=== PATIENT | female | born 1975 | race Caucasian/White ===

== ENCOUNTER 2016-06-10 20:29 | Outpatient (CLI) | payer MEDICAID ==
[~2016-06-10] VITALS: Ht 170.2 cm; Wt 84.8 kg
[2016-06-10] MEDS ORDERED: PRENAT PO (22:10)
[2016-06-10 22:12] VITALS: Ht 170.2 cm; Wt 84.8 kg
[2016-06-10 22:13] VITALS: BP 112/71; PULSE 80; RESP 18
--- NOTE | 2016-06-10 22:57 | RADRPT ---
PROCEDURE: US OB biophysical profile. CLINICAL INDICATION: decreased movements, contractions TECHNIQUE: Multiple sonographic images of the pelvis were obtained. The images were reviewed on a PACS workstation. COMPARISON: No prior studies are available for comparison. FINDINGS: There is a single viable intrauterine gestation. Cardiac activity is present with 140 beats per min [place]. There is a vertex presentation. The placenta is posterior fundal. There is no evidence of placental abruption. There is a normal amount of amniotic fluid with an ADONAY = 13,4 cm. Biophysical profile: movement 2/2 tone 2/2. breathing 2/2 ADONAY 2/2 Total 11/05 RPTAT: AA . IMPRESSION: Normal biophysical profile. . .Andrea Earl MD, Date Time Electronically viewed and signed by .Andrea Earl MD, MD on 06/10/2016 22:57 .S/
--- NOTE | 2016-06-10 23:00 | RADRPT ---
PROCEDURE: US OB CLINICAL INDICATION: contractions TECHNIQUE: Multiple sonographic images of the pelvis were obtained. The images were reviewed on a PACS workstation. COMPARISON: No prior studies are available for comparison. FINDINGS: There is a single viable intrauterine gestation. Cardiac activity is present with 154 beats per min [place]. There is a vertex presentation. The placenta is posterior fundal. There is no evidence of placental abruption. There is a normal amount of amniotic fluid with an ADONAY = 13.4 cm. Measurements were made in order to determine age. The results are as follows: BPD =9.4 cm HC =33.6 cm AC =35.3 cm FL =7.6 cm Estimated gestational age of approximately 38 weeks and 5 days based on ultrasound measurements. Clinical age: 38 weeks and 1 days. The estimated date of delivery is 06/19/16, based on ultrasound measurements. The EFW = 3647 g, 82%, based on LMP age. RPTAT: AA IMPRESSION: Single viable intrauterine gestation of approximately 38 weeks and 5 days based on ultrasound measu rements. .Andrea Earl MD, MD Date Time Electronically viewed and signed by .Andrea Earl MD, on 06/10/2016 23:00 .S/
--- NOTE | 2016-06-11 03:18 | TRIAGE ---
OB Triage Datetime Report Generated by CPN: 06/11/2016 03:18 Datetime: 06/11/2016 00:09 Vaginal Exam Dilatation (cms): 3.0 Effacement (%): 70 Station: -3 Exam By: M. Tungate RN Membrane Status: Intact Cervix, Consistency: Soft Cervix, Position: Posterior Datetime: 06/10/2016 23:26 EGA: 38.1 Datetime: 06/10/2016 23:10 Pain Assessment Pain Scale: 0 Pain Presence: None/Denies Pain Type: N/A Datetime: 06/10/2016 21:35 Vaginal Exam Dilatation (cms): 3.0 Effacement (%): 70 Station: -3 Exam By: Bert Allen RN Membrane Status: Intact Vaginal Bleeding: None Cervix, Consistency: Soft Cervix, Position: Posterior Datetime: 06/10/2016 21:32 Stage of : OB Triage Assessment Type: Triage Maternal Assessment Level of Consciousness: Fully Conscious DTR's/Clonus: DTRs 2+; No Clonus Headache: Denies Blurred Vision: No Respiratory Effort: Unlabored; Regular Rhythm; Equal Expansion Breath Sounds, Left: Clear and Equal Breath Sounds, Right: Clear and Equal Nausea/Vomiting: Denies RUQ Epigastric Pain: Denies Lower Extremities Edema: None Degree: None Upper Extremities Edema: None Degree: None Facial Edema: None Temperature Route: Oral Fall Risk Assessment History of Falling: (0) No Secondary Diagnosis: (0) No Ambulatory Aid: (0) Bedrest/Nurse Assist IV Therapy: (0) No Gait: (0) Normal/Bedrest/Immobile Mental Status: (0) Oriented to Own Ability Fall Score: 0 Fall Risk Score Definition: No Risk: No action required Pain Assessment Pain Scale: 0 Pain Presence: None/Denies Pain Type: N/A Datetime: 06/10/2016 21:30 Time of Arrival: 06/10/2016 20:25 Arrived By: Wheelchair Arrived From: Home Chief Complaint: Sent from office 3cm for NST/BPP/EFW Movement: Present Contractions: Denies/Absent Rupture of Membranes: Denies Vaginal Bleeding: None Vaginal Discharge: Denies Recent Sexual Intercouse: Denies Abdominal Trauma: Not Applicable Patient Complaints: None Time Provider Notified: 06/11/2016 00:15 Provider Notified: Dr. Rick Initial Plan: CEFM, U/S
--- NOTE | 2016-06-11 07:45 | PN ---
Date/Time of Note Date/Time of Note DATE: 06/11/16 TIME: 07:42 OB Subjective Subjective Subjective 40 Year-old with SIUP at 38 1/7 weeks presents For NST and BPP. She has been receiving her care with Dr. Rick. She states good movement. She denies nausea, vomiting, shortness of breath, chest pain, headache, visual changes, vaginal bleeding or LOF. OB Objective Objective Objective General: Patient appears well, alert and oriented, NAD, appropriate mood and affect ABD: gravid, soft, non-tender. Back: No CVA tenderness (B/L) LE: No clubbing, cyanosis, edema, thigh or calf tenderness bilaterally FHT: 140 bpm , moderate variability with acceleration, no deceleration-category I Contractions: Occasional SVE: 3/70/-3/ceph/intact membrane OB Assessment/Plan Other plan: 40 Year-old with SIUP at 38 1/7 weeks presents for NST and BPP - FHR: No sign of metabolic acidosis- Category I - Continuous EFM, toco - Contractions: Occasional - Reactive NST. - BPP: 10/10, ADONAY: 13.7 - Symptoms and sign of labor, preeclampsia, kick count discussed with patient, she voiced understanding. All of her questions answered. - Patient was discharged home in stable condition with the appropriate discharge instructions provided. I would like patient to have close follow-up with her primaryphysician or outpatient clinic in 1-2 days or return to the ER for worsening symptoms or any other urgent concerns. CRISTIAN MAHER Jun 11, 2016 07:45
== END 2016-06-11 00:33 | disposition home or self-care (01) ==
LOC: L-D 20:29 → OBT 20:29
PROVIDERS: ATTEND Obstetrics & Gynecology
DX: O60.03 Preterm labor without delivery, third trimester (principal); O14.93 Unspecified pre-eclampsia, third trimester; O09.513 Supervision of elderly primigravida, third trimester; Z3A.38 38 weeks gestation of pregnancy
CPT/HCPCS: 76815; 76818; Z7500; G0463

== ENCOUNTER 2016-06-14 06:53 | Inpatient (IN) | payer MEDICAID ==
[~2016-06-14] VITALS: Ht 167.6 cm; Wt 81.8 kg
[~2016-06-14 06:53] MED LIST: PRENAT PO
[2016-06-14 07:10] VITALS: Ht 167.6 cm; Wt 81.8 kg
[2016-06-14] MEDS ORDERED: LACTATED RINGER'S 1,000 ML IV SCH (07:13)
[2016-06-14] MEDS ORDERED: LACTATED RINGER'S 1,000 ML IV PRN (07:13)
--- NOTE | 2016-06-14 07:27 | TRIAGE ---
OB Triage Datetime Report Generated by CPN: 06/14/2016 07:27 Datetime: 06/14/2016 07:11 Comments: viable baby girl Datetime: 06/14/2016 07:09 Vaginal Exam Dilatation (cms): 10.0 Membrane Status: Ruptured Membranes Rupture Method: Spontaneous Amniotic Fluid Color: Light Meconium Amniotic Fluid Amount: Large Amniotic Fluid Odor: Normal Datetime: 06/14/2016 07:03 Stage of : OB Triage Time of Arrival: 06/14/2016 06:45 EGA: 38.5 Arrived By: Wheelchair Arrived From: Home Chief Complaint: CONTRACTIONS/ ROM Movement: Present Contractions: Irregular Rupture of Membranes: Ruptured Vaginal Bleeding: None Vaginal Discharge: Present Recent Sexual Intercouse: Denies Abdominal Trauma: Not Applicable Patient Complaints: None Time Provider Notified: 06/14/2016 07:03 Provider Notified: DR EDEN Initial Plan: CALL MD, EFM Maternal Assessment Level of Consciousness: Fully Conscious DTR's/Clonus: DTRs 2+; No Clonus Headache: Denies Blurred Vision: No Respiratory Effort: Unlabored; Regular Rhythm; Equal Expansion Breath Sounds, Left: Clear and Equal Breath Sounds, Right: Clear and Equal Nausea/Vomiting: Denies RUQ Epigastric Pain: Denies Lower Extremities Edema: None Degree: None Upper Extremities Edema: None Degree: None Facial Edema: None Temperature Route: Oral (Annotations: NOT OBTAINED PT SCREAMING) Fall Risk Assessment History of Falling: (0) No Secondary Diagnosis: (0) No Ambulatory Aid: (0) Bedrest/Nurse Assist IV Therapy: (0) No Gait: (0) Normal/Bedrest/Immobile Mental Status: (0) Oriented to Own Ability Fall Score: 0 Fall Risk Score Definition: No Risk: No action required Datetime: 06/14/2016 07:01 Vaginal Exam Dilatation (cms): 8.0 Datetime: 06/14/2016 07:00 Labor Evaluation Frequency: IRREGULAR Monitor Mode: External Duration (sec)2399: 30-60 Quality: Mild Pattern: Normal: <= 5 Contractions in 10 Minutes Resting Tone [place]: Relaxed Heart Rate FHR Baseline Rate: 145 Monitor Mode: External US FHR Baseline Changes: No Baseline Change Variability: Moderate 6-25 bpm Accelerations: 10X10 Decelerations: None Category: Category I Datetime: 06/14/2016 06:59 Vaginal Exam Dilatation (cms): 8.0 Effacement (%): 90 Station: -1 Exam By: Dallin PIZARRO RN Vaginal Bleeding: None Cervix, Consistency: Soft Cervix, Position: Posterior Presentation 'A': Cephalic Datetime: 06/11/2016 00:11 Labor Evaluation Frequency: Irregular Monitor Mode: External Pattern: Normal: <= 5 Contractions in 10 Minutes Resting Tone [place]: Relaxed Heart Rate FHR Baseline Rate: 145 Monitor Mode: External US Variability: Moderate 6-25 bpm Accelerations: Prolonged Decelerations: None Category: Category I Datetime: 06/11/2016 00:09 Pain Assessment Pain Scale: 0 Pain Presence: None/Denies Pain Type: N/A Datetime: 06/10/2016 23:26 EGA: 38.1 Membranes Ruptured Date/Time: 06/14/2016 07:10 Datetime: 06/10/2016 23:20 Labor Evaluation Frequency: Irregular Monitor Mode: External Pattern: Normal: <= 5 Contractions in 10 Minutes Resting Tone [place]: Relaxed Heart Rate FHR Baseline Rate: 145 Monitor Mode: External US Variability: Moderate 6-25 bpm Accelerations: Prolonged Decelerations: None Category: Category I Datetime: 06/10/2016 22:37 Monitor Mode: Palpation (Annotations: Re-applied) Resting Tone [place]: Relaxed Monitor Mode: External US (Annotations: Re-applied) Datetime: 06/10/2016 22:25 Labor Evaluation Frequency: Irregular Monitor Mode: External Pattern: Normal: <= 5 Contractions in 10 Minutes Resting Tone [place]: Relaxed Heart Rate FHR Baseline Rate: 140 Monitor Mode: External US Variability: Moderate 6-25 bpm Accelerations: 15X15 Decelerations: None Category: Category I Datetime: 06/10/2016 21:32 Fall Score: 0 Fall Risk Score Definition: No Risk: No action required Datetime: 06/10/2016 21:30 Monitor Mode: Palpation (Annotations: Applied) Resting Tone [place]: Relaxed Monitor Mode: External US (Annotations: Applied)
[2016-06-14] MEDS ORDERED: OXYTOCIN 10 UNIT INJ IM ONE (07:30)
[2016-06-14] MEDS ORDERED: METHYLERGONOVINE 0.2 MG INJ IM PRN ×2 (07:30→09:30)
[2016-06-14] MEDS ORDERED: BUTORPHANOL 2 MG INJ IV PRN ×2 (07:30)
[2016-06-14] MEDS ORDERED: LIDOCAINE 1% (MPF) 30 ML INJ INJ PRN (07:30)
[2016-06-14] MEDS ORDERED: MISOPROSTOL 200 MCG TAB PR PRN ×2 (07:30→09:30)
[2016-06-14] MEDS ORDERED: OXYTOCIN 30 UNITS/LR 500 ML IV SCH ×2 (07:30)
[2016-06-14] MEDS ORDERED: CARBOPROST 250 MCG INJ IM PRN ×2 (07:30→09:30)
[2016-06-14] MEDS ORDERED: OXYTOCIN 30 UNITS/LR 500 ML IV PRN ×2 (07:30→09:30)
[2016-06-14] MEDS ORDERED: ACETAMINOPHEN/CODEINE #3 TAB PO PRN (07:30)
[2016-06-14] MEDS ORDERED: IBUPROFEN 600 MG TAB PO PRN (07:30)
[2016-06-14 07:31] LABS: ADD SCAN DIFF NO
--- NOTE | 2016-06-14 07:37 | HP ---
Date/Time of Note Date/Time of Note DATE: 06/14/16 TIME: 07:37 OB - History Hx of Present Free Text/Dictation 39+wks GA in labor Care: Good Care Ultrasounds: No ultrasounds Obstetrical Complications: None Medical Complications: None Past Family/Social History * Past Medical, Surgical, Family and Obstetric Histories reviewed from chart. OB Admission Exam Physical Exam Abdomen: WNL Effacement: 100% Station: -1 Membranes: Intact Amniotic Fluid: Thin Meconium Heart Rate: 140's Accelerations: Accelerations Present Decelerations: No Decelerations Varibility: Moderate Contractions on Admission: < 5 Minutes Apart OB Assessment/Plan Reason for admission: observation Plan: Expectant Management RIVERA EDEN M.D. Jun 14, 2016 07:37
--- NOTE | 2016-06-14 07:37 | LDN ---
Date/Time of Note Date/Time of Note DATE: 06/14/16 TIME: 07:36 Delivery Summary Placenta Delivered: Spontaneously Meconium: Light Perineum intact?: Yes Anesthesia type: None Estimated blood loss: 200 Sponge & Needle done & correct: Yes All needle counts correct: Yes Any foreign bodies felt in the: No Problems: Delivery Information Sex Sex: female Apgars 1 Minute: 9 5 Minute: 9 Suctioning Nose & mouth suctioned at cata: Yes Delee suction performed: Yes Umbilical Cord Umbilical cord with: 3 Vessels Cord presentations: nuchal cord Nuchal cord present X: 1 Cord Blood was obtained: Yes Mother & Baby Disposition Disposition Mom & Baby to Maternity; Good: Yes Baby to NICU: No RIVERA EDEN M.D. Jun 14, 2016 07:36
[2016-06-14 07:39] LABS: BASOPHILS % 0.2 % (0.0-2.0); EOSINOPHILS % 0.2 % (0.0-7.0); HEMATOCRIT 32.4 % (37.0-47.0); HEMOGLOBIN 10.6 g/dl (12.0-16.0); LYMPHOCYTES # 3.1 10^3/ul (0.8-2.9); LYMPHOCYTES % 19.6 % (15.0-51.0); MEAN CORPUSCULAR HEMOGLOBIN 27.5 pg (29.0-33.0); MEAN CORPUSCULAR HGB CONC 32.7 g/dl (32.0-37.0); MEAN CORPUSCULAR VOLUME 83.9 fl (82.0-101.0); MEAN PLATELET VOLUME 12.4 fl (7.4-10.4); MONOCYTE # 0.8 10^3/ul (0.3-0.9); MONOCYTES % 5.3 % (0.0-11.0); NEUTROPHIL # 11.4 10^3/ul (1.6-7.5); NEUTROPHILS % 73.4 % (39.0-77.0); PLATELET COUNT 176 10^3/UL (140-415); RED BLOOD COUNT 3.86 10^6/ul (4.20-5.40); RED CELL DISTRIBUTION WIDTH 13.8 % (11.5-14.5); WHITE BLOOD COUNT 15.6 10^3/ul (4.8-10.8)
[2016-06-14 07:47] LABS: INR 0.96; PROTIME 12.8 Sec (12.2-14.2)
[2016-06-14 07:48] LABS: PARTIAL THROMBOPLASTIN TIME 26.5 Sec (25.0-35.0)
[2016-06-14 09:20] VITALS: BP 116/67; RESP 18
[2016-06-14] MEDS ORDERED: SENNA/DOCUSATE NA (8.6MG/50MG) TAB PO PRN (09:30)
[2016-06-14] MEDS ORDERED: WITCH HAZEL/GLYCERIN PAD PR PRN (09:30)
[2016-06-14] MEDS ORDERED: BENZOCAINE 20% 56 ML SPRAY TOP PRN (09:30)
[2016-06-14] MEDS ORDERED: ZOLPIDEM 5 MG TAB PO PRN (09:30)
[2016-06-14] MEDS ORDERED: LANOLIN 7 GM TUBE TOP PRN (09:30)
[2016-06-14] MEDS ORDERED: OXYCODONE/ASPIRIN (4.88/325) TAB PO PRN (09:30)
[2016-06-14] MEDS: LACTATED RINGER'S 1,000 ML IV* SCH ×2 (11:34→17:27)
[2016-06-14] MEDS: IBUPROFEN 600 MG TAB PO SCH ×3 (11:50→23:27)
[2016-06-14 16:00] VITALS: BP 104/61; PULSE 67; RESP 18
[2016-06-14 20:00] VITALS: BP 108/60; PULSE 71; RESP 18
[2016-06-14] MEDS: MAGNESIUM HYDROXIDE 30ML CUP PO SCH (21:09)
[2016-06-14] MEDS: SENNA/DOCUSATE NA (8.6MG/50MG) TAB PO SCH (21:09)
[2016-06-15 04:00] VITALS: BP 109/66; PULSE 74; RESP 18
[2016-06-15] MEDS: IBUPROFEN 600 MG TAB PO SCH ×4 (05:57→23:31)
[2016-06-15 07:42] LABS: ADD SCAN DIFF NO
[2016-06-15 07:46] LABS: BASOPHIL # 0.1 10^3/ul (0.0-0.1); BASOPHILS % 0.4 % (0.0-2.0); EOSINOPHILS # 0.1 10^3/ul (0.0-0.5); EOSINOPHILS % 0.8 % (0.0-7.0); HEMATOCRIT 32.3 % (37.0-47.0); HEMOGLOBIN 10.1 g/dl (12.0-16.0); LYMPHOCYTES # 2.4 10^3/ul (0.8-2.9); MEAN CORPUSCULAR HEMOGLOBIN 26.8 pg (29.0-33.0); MEAN CORPUSCULAR HGB CONC 31.3 g/dl (32.0-37.0); MEAN CORPUSCULAR VOLUME 85.7 fl (82.0-101.0); MEAN PLATELET VOLUME 12.5 fl (7.4-10.4); MONOCYTE # 0.8 10^3/ul (0.3-0.9); NEUTROPHIL # 9.7 10^3/ul (1.6-7.5); NEUTROPHILS % 73.7 % (39.0-77.0); PLATELET COUNT 185 10^3/UL (140-415); RED BLOOD COUNT 3.77 10^6/ul (4.20-5.40); RED CELL DISTRIBUTION WIDTH 13.9 % (11.5-14.5); WHITE BLOOD COUNT 13.2 10^3/ul (4.8-10.8)
[2016-06-15 08:00] VITALS: BP 105/60; PULSE 73; RESP 18
[2016-06-15] MEDS ORDERED: INFLUENZA VIRUS VACCINE 0.5 ML (DISPENSING) IM* ONE (09:00)
[2016-06-15] MEDS: MAGNESIUM HYDROXIDE 30ML CUP PO SCH ×2 (09:00→21:00)
[2016-06-15] MEDS: LACTATED RINGER'S 1,000 ML IV* SCH ×2 (09:23→09:27)
[2016-06-15] MEDS: SENNA/DOCUSATE NA (8.6MG/50MG) TAB PO SCH ×2 (09:27→21:00)
[2016-06-15 16:10] VITALS: BP 105/61; PULSE 68; RESP 16
[2016-06-15 19:30] VITALS: BP 112/64; PULSE 78; RESP 20
--- NOTE | 2016-06-16 00:14 | QN ---
Documentation Comment Late Note 06/15/16 PPD#1 is stable afebrile tolerates diet No Vb +BM +voids VS stable Gen NAD Abd soft NT ND Genitalai No blood at perinium --->discharge plan tomorrow RIVERA EDEN M.D. Jun 16, 2016 00:13
[2016-06-16 03:54] VITALS: BP 110/66; PULSE 70; RESP 20
[2016-06-16] MEDS: IBUPROFEN 600 MG TAB PO SCH ×2 (05:41→11:54)
[2016-06-16 08:15] VITALS: BP 123/84; PULSE 69; RESP 18
[2016-06-16] MEDS: SENNA/DOCUSATE NA (8.6MG/50MG) TAB PO SCH (09:00)
[2016-06-16] MEDS: MAGNESIUM HYDROXIDE 30ML CUP PO SCH (09:00)
[2016-06-16] MEDS ORDERED: DIPHTH/TET/ACEL PERTUSS (ADULT) 0.5 ML VIAL IM* ONE (09:00)
== END 2016-06-16 17:45 | disposition home or self-care (01) | DRG 775 ==
LOC: OBT 06:53 → L-D 06:54 → OBT 07:00 → L-D 07:00 → PP1 09:16
PROVIDERS: ADMIT Obstetrics & Gynecology; ATTEND Obstetrics & Gynecology
PROC: 10E0XZZ Delivery of Products of Conception, External Approach (ICD-10-PCS; principal; 2016-06-14)
PROC: 3E00X4Z Introduction of Serum, Toxoid and Vaccine into Skin and Mucous Membranes, External Approach (ICD-10-PCS; 2016-06-16)
DX: O69.81X0 Labor and delivery complicated by cord around neck, without compression, not applicable or unspecified (principal); Z23 Encounter for immunization; Z3A.39 39 weeks gestation of pregnancy; Z37.0 Single live birth
CPT/HCPCS: 85025; 85610; 85730; 86592; 86900; 86901; 90686; 90715; 99464; G0463; J2590; J7120